=== PATIENT | male | born 1955 | race Asian ===

== ENCOUNTER 2018-12-12 12:12 | Emergency (ER) | payer OTHER ==
[~2018-12-12] VITALS: Ht 165.1 cm; Wt 63.6 kg
[2018-12-12 12:16] VITALS: BP 130/78
[2018-12-12] MEDS ORDERED: ROSU10 PO (12:27)
[2018-12-12] MEDS ORDERED: METF-960 PO (12:28)
[2018-12-12] MEDS ORDERED: ASPI-556 PO (12:28)
[2018-12-12 12:30] LABS: GLUCOSE,POINT OF CARE 181 MG/DL (70-110)
[2018-12-12] MEDS ORDERED: PERTUSS(ACELL),DIPH,TET VAC/PF 0.5 ML VIAL IM ONE (13:15)
== END 2018-12-12 13:53 | disposition home or self-care (01) ==
LOC: EMS 12:13
DX: S61.411A Laceration without foreign body of right hand, initial encounter (principal); E11.9 Type 2 diabetes mellitus without complications; I10 Essential (primary) hypertension; E78.00 Pure hypercholesterolemia, unspecified; Z79.82 Long term (current) use of aspirin; Z79.84 Long term (current) use of oral hypoglycemic drugs; W26.0XXA Contact with knife, initial encounter; Y93.89 Activity, other specified; Y92.89 Other specified places as the place of occurrence of the external cause; Y99.8 Other external cause status
CPT/HCPCS: 12001; 90471; 90715